=== PATIENT | male | born 2000 | race Caucasian/White ===

== ENCOUNTER 2019-04-17 22:25 | Emergency (ER) | payer SELFPAY ==
[~2019-04-17] VITALS: Ht 172.7 cm; Wt 75.0 kg
[2019-04-17 22:29] VITALS: BP 132/85
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
== END 2019-04-17 22:52 | disposition left against medical advice (07) ==
LOC: ED 22:46
DX: F32.9 Major depressive disorder, single episode, unspecified (principal); F41.9 Anxiety disorder, unspecified; F17.200 Nicotine dependence, unspecified, uncomplicated
CPT/HCPCS: 99284

== ENCOUNTER 2019-05-06 21:08 | Emergency (ER) | payer BC, OTHER ==
[~2019-05-06] VITALS: Ht 172.7 cm; Wt 80.3 kg
[2019-05-06] MEDS ORDERED: EPINEPHRINE 1 MG/ML, 1ML ONE (22:17)
[2019-05-06] MEDS ORDERED: DIPHENHYDRAMINE 50 MG/ML, 1ML ONE (22:17)
[2019-05-06] MEDS ORDERED: DIPHENHYDRAMINE 25 MG CAPSULE ONE (22:24)
--- NOTE | 2019-05-06 22:27 | NUR ---
Administered meds per mar.
[2019-05-06] MEDS ORDERED: EPINEPHRINE 1 MG/ML, 1ML SQ ONE (22:30)
[2019-05-06] MEDS ORDERED: DIPHENHYDRAMINE 25 MG CAPSULE PO ONE (22:30)
[2019-05-06] MEDS ORDERED: DIPHENHYDRAMINE 50 MG/ML, 1ML IVPush ONE (22:30)
--- NOTE | 2019-05-06 22:34 | NUR ---
Patient came to ER c/o facial swelling, redness, and itching. Patient states he ate shellfish about an hour prior. He then played soccer and started experiencing these symptoms and did not finish the game. Patient has no previous allergy that he is aware of. He took Benedryl [employer]. Patient is in no apparent distress. Swelling and redness noted to face. Patient has a patent airway and speaks in full sentences. Patient rests calmly in rpride.
[2019-05-06 22:58] VITALS: BP 126/77
--- NOTE | 2019-05-06 22:59 | NUR ---
Patient states he is feeling much better.
== END 2019-05-06 23:56 | disposition home or self-care (01) ==
LOC: ED 23:28
DX: T78.49XA Other allergy, initial encounter (principal); R21 Rash and other nonspecific skin eruption; X58.XXXA Exposure to other specified factors, initial encounter
CPT/HCPCS: 96372; 99283; J0171; J7512; Q0163

== ENCOUNTER 2019-07-11 16:15 | Emergency (ER) | payer BC ==
[~2019-07-11] VITALS: Ht 172.7 cm; Wt 81.0 kg
[2019-07-11 16:18] VITALS: BP 134/66
== END 2019-07-11 17:18 | disposition home or self-care (01) ==
LOC: ED 17:10
DX: S43.122A Dislocation of left acromioclavicular joint, 100%-200% displacement, initial encounter (principal); X58.XXXA Exposure to other specified factors, initial encounter; Y93.23 Activity, snow (alpine) (downhill) skiing, snowboarding, sledding, tobogganing and snow tubing; Y92.89 Other specified places as the place of occurrence of the external cause; Y99.8 Other external cause status
CPT/HCPCS: 99283